=== PATIENT | female | born 1995 | race Caucasian/White ===

== ENCOUNTER 2016-07-11 15:56 | Emergency (ER) | payer BC ==
[2016-07-11 17:38] VITALS: BP 146/91
--- NOTE | 2016-07-11 17:51 | UC ---
Skin Complaint HPI - History of Current Complaint Chief Complaint: UCSkin Time Seen by Provider: 07/11/16 17:41 Stated Complaint: SKIN COMPLAINT Hx Obtained From: Patient Hx Last Menstrual Period: NUVARING ?: No Onset/Duration: Sudden Onset - yesterday, like a bug bite, Worse Since - today with spreading redness. Skin Exposure Onset/Duration: Days Ago - co-worker with MRSA Timing: Constant Onset Severity: Mild Current Severity: Mild Location: Discrete - left forearm. Aggravating: Touch Alleviating: Nothing Associated Signs & Symptoms: Positive: Tenderness - Allergy/Home Medications Allergies/Adverse Reactions: Allergies Allergy/AdvReac Type Severity Reaction Status Date / Time No Known Allergies Allergy Verified 07/11/16 17:38 Review of Systems Skin: Other - red spot. All Other Systems Reviewed And Are Negative: Yes PMH/Surg Hx/FS Hx/Imm Hx Previously Healthy: Yes Endocrine History Of: Denies: Thyroid Disease Respiratory History Of: Comment Only: Asthma - bronchospasm with infections. GI/ History Of: Denies: Gastroesophageal Reflux - Surgical History Surgical History: Yes Surgery Procedure, Year, and Place: wisdom teeth - Family History Known Family History: Positive: Hypertension, Diabetes Negative: Respiratory Disease - neg asthma in family - Social History Occupation: Employed Full-time Lives: With Family Alcohol Use: Occasionally Substance Use Type: None Smoking Status (MU): Never Smoked Tobacco - Immunization History Most Recent Influenza Vaccination: none Physical Exam Triage Information Reviewed: Yes Appearance: Well-Appearing, No Pain Distress, Obese Vital Signs: Initial Vital Signs Temp 98.2 F 07/11/16 17:32 Pulse 90 07/11/16 17:32 Resp 16 07/11/16 17:32 BP 146/91 07/11/16 17:32 Pulse Ox 100 07/11/16 17:32 Vital Signs Reviewed: Yes Eyes: Positive: Conjunctiva Clear Neck exam: Normal Respiratory: Positive: Lungs clear Cardiovascular Exam: Normal Musculoskeletal Exam: Normal Neurological Exam: Normal Psychological Exam: Normal Skin: Positive: Other - 3.0x1.5 cm erythematous plaque, warm and tender. Course/Dx - Differential Diagnoses - Skin Complaint Differential Diagnoses: Cellulitis, Contact Dermatitis, MRSA - Diagnoses Provider Diagnoses: Cellulitis left forearm Discharge - Discharge Plan Condition: Stable Disposition: HOME Prescriptions: Sulfamethox/Trimethoprim DS* [Bactrim DS 800/160 TAB*] 1 tab PO BID #14 tab Patient Education Materials: Cellulitis (ED), Sulfamethoxazole/Trimethoprim ( By mouth) Additional Instructions: Keep the area covered at work
[2016-07-11] MEDS ORDERED: Sulfamethox/Trimethoprim DS 800/160* TAB PO ONE (17:56)
== END 2016-07-11 18:07 | disposition home or self-care (01) ==
LOC: UCCORT 15:56
DX: L03.114 Cellulitis of left upper limb (principal); Z87.09 Personal history of other diseases of the respiratory system
CPT/HCPCS: 87070; 87077; 87205; 99212; A9270-GY; G0463

== ENCOUNTER 2017-05-07 12:27 | Emergency (ER) | payer BC ==
[2017-05-07 14:12] VITALS: BP 139/80
--- NOTE | 2017-05-07 15:01 | UC ---
Throat Pain/Nasal Shayan HPI - HPI Summary HPI Summary: 21 yo F has a sore throat and feels like there is a "film" on the roof of her mouth and the roof of her mouth is itchy. No fever. No cough. 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 Was also exposed to hand foot and mouth disease last week. - History of Current Complaint Chief Complaint: UCGeneralIllness Stated Complaint: SORE THROAT/ORAL COMPLAINT Time Seen by Provider: 05/07/17 15:00 Hx Obtained From: Patient Hx Last Menstrual Period: unknown, has nuvaring ?: No Onset/Duration: Gradual Onset, Lasting Days Severity: Moderate Pain Intensity: 5 Pain Scale Used: 0-10 Numeric Cough: None Associated Signs & Symptoms: Positive: Dysphagia, Other - roof of mouth is sore , feels like there is a film on it, and it is itchy - Allergies/Home Medications Allergies/Adverse Reactions: Allergies Allergy/AdvReac Type Severity Reaction Status Date / Time No Known Allergies Allergy Verified 05/07/17 14:05 Home Medications: Home Medications Ibuprofen [Ibuprofen 200 MG] 600 mg PO Q6H PRN 05/07/17 [History Confirmed 05/07] Nuvaring ONCE 05/07/17 [History] PMH/Surg Hx/FS Hx/Imm Hx Previously Healthy: Yes - Surgical History Surgical History: Yes Surgery Procedure, Year, and Place: wisdom teeth - Family History Known Family History: Positive: Hypertension, Diabetes Negative: Respiratory Disease - neg asthma in family - Social History Occupation: Employed Full-time - pharmacy student Alcohol Use: Occasionally Substance Use Type: None Smoking Status (MU): Never Smoked Tobacco - Immunization History Most Recent Influenza Vaccination: none Review of Systems Constitutional: Negative Skin: Negative ENT: Sore Throat Respiratory: Negative Cardiovascular: Negative Gastrointestinal: Negative Musculoskeletal: Negative Neurological: Negative Psychological: Negative Is Patient Immunocompromised?: No All Other Systems Reviewed And Are Negative: Yes Physical Exam Triage Information Reviewed: Yes Appearance: Ill-Appearing, Pain Distress, Obese Vital Signs: Initial Vital Signs Temp 97.1 F 05/07/17 14:07 Pulse 81 05/07/17 14:07 Resp 16 05/07/17 14:07 BP 139/80 05/07/17 14:07 Pulse Ox 100 05/07/17 14:07 Vital Signs Reviewed: Yes Eyes: Positive: Conjunctiva Clear ENT: Positive: Normal ENT inspection, Pharyngeal erythema, TMs normal, Uvula midline, Other - roof of mouth, mid-hard palate with mucosal disruption, "wrinkled". No petechiae. No sign of Coxsackie virus.. Negative: Tonsillar swelling, Tonsillar exudate Neck: Positive: Supple, Nontender, No Lymphadenopathy Respiratory: Positive: Lungs clear, Normal breath sounds, No respiratory distress Cardiovascular: Positive: RRR, No Murmur, Pulses Normal, Brisk Capillary Refill Musculoskeletal: Positive: Strength Intact, ROM Intact, No Edema Neurological: Positive: Alert, Muscle Tone Normal Psychological Exam: Normal Skin Exam: Normal Skin: Negative: rashes Throat Pain/Nasal Course/Dx - Course Course Of Treatment: rapid A - Differential Dx/Diagnosis Differential Diagnosis/HQI/PQRI: Mononucleosis, Pharyngitis, Tonsillitis, URI Provider Diagnoses: Pharyngitis. stomatitis. Elevated BP without dx of HTN Discharge - Discharge Plan Condition: Stable Disposition: HOME Patient Education Materials: Pharyngitis (ED), Oral Mucositis (ED) Referrals: Thelma Marie MD [Primary Care Provider] - 2 Days Additional Instructions: You may want to try "magic mouthwash", equal parts mixture of liquid antacid, such as Maalox, and liquid benadryl (diphenhydramine). You can ask the pharmacist and they can advise you if you are unsure about this. You can swish this in your mouth and then expectorate (spit it out). This helps with the soreness and itching on the roof of your mouth. You may also try the baking soda or salt water solution that is recommended in these instructions. Your blood pressure is elevated today. This may be due to pain. However you should have this checked again with your doctor within one month. We have drawn your blood to test for mononucleosis today. The results will be available in 1-2 days. We will contact you if the mono test is positive. You may also call here for results if you have not heard from us. If the mono test is positive, you will want to avoid any contact sports or activities where your spleen could rupture. Follow up with your doctor or return to urgent care if you have any new or worsening symptoms.
[2017-05-08 13:57] LABS: EBV Response YES
[2017-05-08 14:11] LABS: Hematocrit 44 % (35-47); Hemoglobin 14.8 g/dl (12.0-16.0); Manual Entry Verification HAN0055; Mean Corpuscular HGB Conc 34 g/dl (31-36); Mean Corpuscular Hemoglobin 31 pg (27-31); Mean Corpuscular Volume 90 fL (80-97); Mean Platelet Volume 9 um3 (7.4-10.4); Red Blood Count 4.85 10^6/ul (4.0-5.4); Red Cell Distribution Width 12 % (10.5-15); White Blood Count 9.4 10^3/ul (3.5-10.8)
[2017-05-08 14:32] LABS: Mono Internal Control QC Line Present
--- NOTE | 2017-05-09 07:35 | ED ---
Progress - Progress Note Progress Note: call patient cbc no acute changes and mono negative. If worse go to er. Course/Dx - Course Course Of Treatment: rapid A - Diagnoses Provider Diagnoses: Fever
[2017-05-10 11:13] LABS: EBV Capsid Ag IgG Ab Positive (Negative); EBV Capsid Ag IgM Ab Negative (Negative)
== END 2017-05-07 16:21 | disposition home or self-care (01) ==
LOC: UCCORT 12:27
DX: J02.9 Acute pharyngitis, unspecified (principal); K12.1 Other forms of stomatitis; R03.0 Elevated blood-pressure reading, without diagnosis of hypertension; E66.9 Obesity, unspecified
CPT/HCPCS: 36415; 85025; 86308; 86664; 86665; 87651; 99211; G0463

== ENCOUNTER 2017-06-08 15:34 | Emergency (ER) | payer BC ==
[2017-06-08 18:11] VITALS: BP 142/89
--- NOTE | 2017-06-08 18:44 | UC ---
Respiratory Complaint HPI - HPI Summary HPI Summary: 21 female presents to with complaints of cough x 3 weeks, runny nose and not improving. Patient states she has tried everything and is still feeling malaise. Has been drinking fluids, honey, tea and taking mucinex. No other complaints. No PMHx. States he has been coughing so hard he vomits phlegm. Denies recent fever/chills. - History of Current Complaint Chief Complaint: UCRespiratory Stated Complaint: COUGH Time Seen by Provider: 06/08/17 18:21 Hx Obtained From: Patient Hx Last Menstrual Period: less than 3 weeks ?: No Onset/Duration: Sudden Onset, Lasting Weeks - 3, Still Present Timing: Constant Severity Initially: Moderate Severity Currently: Moderate Pain Intensity: 0 Pain Scale Used: 0-10 Numeric Character: Cough: Nonproductive Aggravating Factors: Recumbent Position Alleviating Factors: Upright Position, Nothing Associated Signs And Symptoms: Positive: URI - Allergies/Home Medications Allergies/Adverse Reactions: Allergies Allergy/AdvReac Type Severity Reaction Status Date / Time seasonal Allergy Eyes Uncoded 06/08/17 18:11 Itchy/Swollen/Red/Watery PMH/Surg Hx/FS Hx/Imm Hx - Additional Past Medical History Additional PMH: Denied asthma, DM and HTN - Surgical History Surgical History: Yes Surgery Procedure, Year, and Place: wisdom teeth - Family History Known Family History: Positive: Hypertension, Diabetes Negative: Respiratory Disease - neg asthma in family - Social History Alcohol Use: Occasionally Substance Use Type: None Smoking Status (MU): Never Smoked Tobacco - Immunization History Most Recent Influenza Vaccination: none Review of Systems Constitutional: Negative ENT: Negative, Nasal Discharge Respiratory: Cough Cardiovascular: Negative All Other Systems Reviewed And Are Negative: Yes Physical Exam Triage Information Reviewed: Yes Appearance: Well-Appearing, No Pain Distress, Well-Nourished Vital Signs: Initial Vital Signs Temp 97.2 F 06/08/17 18:05 Pulse 100 06/08/17 18:05 Resp 18 06/08/17 18:05 BP 142/89 06/08/17 18:05 Pulse Ox 98 06/08/17 18:05 elevated bp noted and recheck PCP 2 weeks Vital Signs Reviewed: Yes Eyes: Positive: Conjunctiva Clear ENT: Positive: Hearing grossly normal, Pharyngeal erythema, TMs normal, Tonsillar swelling. Negative: Tonsillar exudate Neck: Positive: Supple, Nontender, No Lymphadenopathy Respiratory: Positive: Chest non-tender, Lungs clear, Normal breath sounds, No respiratory distress, No accessory muscle use. Negative: Wheezing Cardiovascular: Positive: RRR, No Murmur, Pulses Normal, Brisk Capillary Refill Musculoskeletal: Positive: Strength Intact, ROM Intact Neurological Exam: Normal Skin Exam: Normal UC Diagnostic Evaluation - Laboratory O2 Sat by Pulse Oximetry: 98 Respiratory Course/Dx - Course Course Of Treatment: due to length of symptoms will attempt to treat with a zpak for bacterial component. Continue symptomatic measures. Given tessalon pearls and inhaler as well. No other concerns. normal vitals. follow up pcp. aware of worsening signs and symptoms to watch out for. - Differential Dx/Diagnosis Differential Diagnosis/HQI/PQRI: Bronchitis, Lower Resp Infection, Other - URI Provider Diagnoses: Bronchitis Discharge - Discharge Plan Condition: Stable Disposition: HOME Prescriptions: Albuterol HFA INHALER* [Ventolin HFA Inhaler*] 1 puff INH Q4H PRN #1 mdi PRN Reason: Sob/Wheezing Azithromycin TAB* [Zithromax TAB (Z-JONATHON) 250 mg #6 tabs] 2 tab PO .TODAY, THEN 1 DAILY #1 jonathon Benzonatate CAP* [Tessalon 100 MG CAP*] 100 mg PO TID #20 cap Patient Education Materials: Acute Bronchitis (ED) Referrals: Thelma Marie MD [Primary Care Provider] - Additional Instructions: Continue symptomatic measures as you have been. Take medications as prescribed. Cough medicine at bedtime especially. Inhaler has needed for SOB/wheezing. Increase fluid intake and get plenty of rest. Follow up with PCP. Any new or worsening signs/symptoms to watch out for.
== END 2017-06-08 18:48 | disposition home or self-care (01) ==
LOC: UCCORT 15:34
DX: J40 Bronchitis, not specified as acute or chronic (principal)
CPT/HCPCS: 99212; G0463

== ENCOUNTER 2018-01-05 15:37 | Emergency (ER) | payer BC ==
--- NOTE | 2018-01-05 16:22 | UC ---
Complaint Female HPI - HPI Summary HPI Summary: 22 yo female presents with burning during urination and urinary frequency that started this morning. She has not taken anything OTC. Has had many UTIs in the past and this feels the same. Denies fever, chills, flank pain, abdominal pain, n/v, vaginal discharge/odor. - History Of Current Complaint Stated Complaint: URINARY Time Seen by Provider: 01/05/18 16:21 Hx Obtained From: Patient Hx Last Menstrual Period: less than 3 weeks Onset/Duration: Sudden Onset Severity Initially: Moderate Severity Currently: Moderate Pain Intensity: 5 Pain Scale Used: 0-10 Numeric - Allergies/Home Medications Allergies/Adverse Reactions: Allergies Allergy/AdvReac Type Severity Reaction Status Date / Time seasonal Allergy Eyes Uncoded 01/05/18 16:25 Itchy/Swollen/Red/Watery PMH/Surg Hx/FS Hx/Imm Hx - Additional Past Medical History Additional PMH: None Previously Healthy: Yes - Surgical History Surgical History: Yes Surgery Procedure, Year, and Place: wisdom teeth - Family History Known Family History: Positive: Hypertension, Diabetes Negative: Respiratory Disease - neg asthma in family - Social History Occupation: Employed Full-time Lives: With Family Alcohol Use: Occasionally Substance Use Type: None Smoking Status (MU): Never Smoked Tobacco - Immunization History Most Recent Influenza Vaccination: none Review of Systems Constitutional: Negative Skin: Negative Respiratory: Negative Cardiovascular: Negative Genitourinary: Dysuria, Frequency Neurological: Negative Psychological: Negative All Other Systems Reviewed And Are Negative: Yes Physical Exam - Summary Physical Exam Summary: GENERAL: NAD. WDWN. No pain distress. SKIN: No rashes, sores, lesions, or open wounds. NECK: Supple. Nontender. No lymphadenopathy. CHEST: CTAB. No r/r/w. No accessory muscle use. Breathing comfortably and in no distress. CV: RRR. Without m/r/g. Pulses intact. Brisk cap refill. ABDOMEN: Soft. NTTP. No distention or guarding. No organomegaly. No CVA tenderness. Bowel sounds present NEURO: Alert. CN II-XII grossly intact. PSYCH: Age appropriate behavior. Triage Information Reviewed: Yes Vital Signs: Vital Signs: Temp Pulse Resp BP Pulse Ox 98.1 F 97 16 122/83 100 01/05/18 16:21 01/05/18 16:21 01/05/18 16:21 01/05/18 16:21 01/05/18 16:21 Laboratory Tests 01/05/18 01/05/18 16:31 16:33 POC Urine Color Dark yellow POC Urine Clarity Slightly cloudy POC Urine pH 5.5 POC Ur Specif [place] 1.020 POC Urine Protein Trace A POC Ur Glucose (UA) Negative POC Urine Ketones 1+ A POC Urine Blood 1+ A POC Urine Nitrite Negative POC Urine Bilirubin Negative POC Urine Urobilinogen 0.2 POC U Leukocyte Esteras 2+ A POC Ur Test Negative Vital Signs Reviewed: Yes Complaint Female Dx - Course Course Of Treatment: UA with signs of infection. Will treat with Macrobid and send for culture - Differential Dx/Diagnosis Provider Diagnoses: UTI Discharge - Sign-Out/Discharge Documenting (check all that apply): Patient Departure - Discharge Plan Condition: Stable Disposition: HOME Prescriptions: Fluconazole [Diflucan 150 MG (NF)] 150 mg PO ONCE #1 tab Nitrofurantoin Monohyd/M-Cryst [Macrobid 100 mg Capsule] 100 mg PO BID #10 cap Patient Education Materials: Urinary Tract Infection in Women (ED) Referrals: Thelma Marie MD [Primary Care Provider] - Additional Instructions: If you develop a fever, shortness of breath, chest pain, new or worsening symptoms - please call your PCP or go to the ED. Per institutional requirements, I have reviewed the chart, however, I was not consulted specifically or made aware of this patient by the above midlevel provider. I did not personally evaluate, interact with , or disposition this patient. - Billing Disposition and Condition Condition: STABLE Disposition: Home
[2018-01-05 16:25] VITALS: BP 122/83
== END 2018-01-05 16:52 | disposition home or self-care (01) ==
LOC: UCCORT 15:37
DX: N39.0 Urinary tract infection, site not specified (principal)
CPT/HCPCS: 81003; 84702; 87086; 99212; G0463

== ENCOUNTER 2018-01-21 14:33 | Emergency (ER) | payer BC ==
[2018-01-21 15:45] VITALS: BP 134/77
--- NOTE | 2018-01-21 16:02 | UC ---
Complaint Female HPI - HPI Summary HPI Summary: urinary pain burning urgency and frequency, also has a sore throat that began today - History Of Current Complaint Chief Complaint: UCGU Stated Complaint: URINARY Time Seen by Provider: 01/21/18 15:49 Hx Obtained From: Patient Hx Last Menstrual Period: 6 WEEKS AGO- NUVARING ?: No Onset/Duration: Sudden Onset Timing: Constant Pain Intensity: 5 Pain Scale Used: 0-10 Numeric Character: Burning Aggravating Factor(s): Coughing, Urination Alleviating Factor(s): Position Associated Signs And Symptoms: Positive: Negative - Allergies/Home Medications Allergies/Adverse Reactions: Allergies Allergy/AdvReac Type Severity Reaction Status Date / Time seasonal Allergy Eyes Uncoded 01/21/18 15:38 Itchy/Swollen/Red/Watery PMH/Surg Hx/FS Hx/Imm Hx Previously Healthy: Yes - Surgical History Surgical History: Yes Surgery Procedure, Year, and Place: wisdom teeth - Family History Known Family History: Positive: Hypertension, Diabetes Negative: Respiratory Disease - neg asthma in family - Social History Occupation: Employed Full-time Lives: With Family Alcohol Use: Occasionally Substance Use Type: None Smoking Status (MU): Never Smoked Tobacco - Immunization History Most Recent Influenza Vaccination: none Most Recent Tetanus Shot: UTD Review of Systems Constitutional: Negative Skin: Negative Eyes: Negative ENT: Sore Throat Respiratory: Negative Cardiovascular: Negative Gastrointestinal: Negative Genitourinary: Dysuria, Frequency, Urgency Motor: Negative Neurovascular: Negative Musculoskeletal: Negative Neurological: Negative Psychological: Negative Is Patient Immunocompromised?: No All Other Systems Reviewed And Are Negative: Yes Physical Exam Triage Information Reviewed: Yes Appearance: Well-Appearing, No Pain Distress, Obese Vital Signs: Initial Vital Signs Temp 98.7 F 01/21/18 15:38 Pulse 90 01/21/18 15:38 Resp 16 01/21/18 15:38 BP 134/77 01/21/18 15:38 Pulse Ox 100 01/21/18 15:38 Vital Signs Reviewed: Yes Eye Exam: Normal Eyes: Positive: Conjunctiva Clear ENT Exam: Normal ENT: Positive: Normal ENT inspection, Hearing grossly normal. Negative: Trismus , Muffled voice, Hoarse voice Dental Exam: Normal Neck exam: Normal Neck: Positive: Supple, Nontender Respiratory Exam: Normal Respiratory: Positive: Chest non-tender, No respiratory distress, No accessory muscle use Cardiovascular Exam: Normal Cardiovascular: Positive: RRR, Pulses Normal, Brisk Capillary Refill Abdominal Exam: Normal Abdomen Description: Positive: Nontender, No Organomegaly, Soft. Negative: CVA Tenderness (R), CVA Tenderness (L) Bowel Sounds: Positive: Present Musculoskeletal Exam: Normal Musculoskeletal: Positive: Strength Intact, ROM Intact Neurological Exam: Normal Neurological: Positive: Alert, Muscle Tone Normal Psychological Exam: Normal Skin Exam: Normal Diagnostics - Laboratory Diagnostic Studies Completed/Ordered: u/a +2 leukoesterase, RST (-) Complaint Female Dx - Course Course Of Treatment: culture urine, macrobid increase fluids follow with pcp 1 week - Differential Dx/Diagnosis Provider Diagnoses: Viral Pharyngitis, UTI Discharge - Sign-Out/Discharge Documenting (check all that apply): Patient Departure - Discharge Plan Condition: Stable Disposition: HOME Prescriptions: Nitrofurantoin Monohyd/M-Cryst [Macrobid 100 mg Capsule] 100 mg PO BID #10 cap Patient Education Materials: Urinary Tract Infection in Women (ED), Pharyngitis (ED), Dysuria (ED) Referrals: Thelma Marie MD [Primary Care Provider] - 1 Week - Billing Disposition and Condition Condition: STABLE Disposition: Home
== END 2018-01-21 16:15 | disposition home or self-care (01) ==
LOC: UCCORT 14:33
DX: N39.0 Urinary tract infection, site not specified (principal); J02.9 Acute pharyngitis, unspecified
CPT/HCPCS: 81003; 84702; 87086; 87651; 99212; G0463

== ENCOUNTER 2018-03-29 15:45 | Emergency (ER) | payer BC ==
[2018-03-29 16:50] VITALS: BP 129/76
--- NOTE | 2018-03-29 16:57 | UC ---
UC General HPI - HPI Summary HPI Summary: Patient is complaining of UTI. She describes it as a combination of frequent, urgent and burning with urination. She denies any associated fever, abdominal pain or flank pain. She has a history of UTIs and this feels the same. She denies risk concern for pelvic infection. onset today. - History of Current Complaint Chief Complaint: UCGU Stated Complaint: URINARY Time Seen by Provider: 03/29/18 16:47 Hx Obtained From: Patient Hx Last Menstrual Period: 6 WEEKS AGO- NUVARING Onset/Duration: Gradual Onset Timing: Constant Pain Intensity: 5 Associated Signs & Symptoms: Positive: Dysuria. Negative: Abdominal Pain, Fever - Allergy/Home Medications Allergies/Adverse Reactions: Allergies Allergy/AdvReac Type Severity Reaction Status Date / Time seasonal Allergy Eyes Uncoded 03/29/18 16:45 Itchy/Swollen/Red/Watery PMH/Surg Hx/FS Hx/Imm Hx Previously Healthy: Yes - Surgical History Surgical History: Yes Surgery Procedure, Year, and Place: wisdom teeth - Family History Known Family History: Positive: Hypertension, Diabetes Negative: Respiratory Disease - neg asthma in family - Social History Occupation: Employed Full-time Alcohol Use: Occasionally Substance Use Type: None Smoking Status (MU): Never Smoked Tobacco - Immunization History Most Recent Influenza Vaccination: none Most Recent Tetanus Shot: UTD Vaccination Up to Date: Yes Review of Systems Constitutional: Negative Skin: Negative Eyes: Negative ENT: Negative Respiratory: Negative Cardiovascular: Negative Gastrointestinal: Negative Genitourinary: Dysuria, Frequency, Urgency Motor: Negative Neurovascular: Negative Musculoskeletal: Negative Neurological: Negative Psychological: Negative Is Patient Immunocompromised?: No All Other Systems Reviewed And Are Negative: Yes Physical Exam Triage Information Reviewed: Yes Appearance: Well-Appearing Vital Signs: Initial Vital Signs Temp 97.2 F 03/29/18 16:46 Pulse 87 03/29/18 16:46 Resp 20 03/29/18 16:46 BP 129/76 03/29/18 16:46 Pulse Ox 100 03/29/18 16:46 Vital Signs Reviewed: Yes Eyes: Positive: Conjunctiva Clear ENT: Positive: Normal ENT inspection Neck: Positive: Supple, Nontender, No Lymphadenopathy Respiratory: Positive: Lungs clear, Normal breath sounds Cardiovascular: Positive: RRR, No Murmur Abdomen Description: Positive: Nontender, No Organomegaly, Soft. Negative: CVA Tenderness (R), CVA Tenderness (L), Distended, Guarding Bowel Sounds: Positive: Present Musculoskeletal: Positive: ROM Intact Neurological: Positive: Alert Psychological: Positive: Normal Response To Family, Age Appropriate Behavior Skin Exam: Normal Diagnostics - Laboratory Diagnostic Studies Completed/Ordered: u/a= positive for blood and leukocytes, culture pending. Course/Dx - Course Course Of Treatment: Nontoxic. No acute abdomen. No concern for pyelonephritis. Patient denies risk, concern as well as signs and symptoms for pelvic infection. UA is positive for leukocytes and blood thus we'll treat for presumptive UTI with a culture pending. - Differential Dx - Multi-Symptom Provider Diagnoses: dysuria Discharge - Sign-Out/Discharge Documenting (check all that apply): Patient Departure All imaging exams completed and their final reports reviewed: No Studies - Discharge Plan Condition: Stable Disposition: HOME Prescriptions: Nitrofurantoin Monohyd/M-Cryst [Macrobid 100 mg Capsule] 100 mg PO BID 5 Days # 10 cap Patient Education Materials: Dysuria (ED) Referrals: Thelma Marie MD [Primary Care Provider] - 7 Days - Billing Disposition and Condition Condition: STABLE Disposition: Home
== END 2018-03-29 17:02 | disposition home or self-care (01) ==
LOC: UCCORT 15:45
DX: R30.0 Dysuria (principal)
CPT/HCPCS: 81003; 87077; 87086; 87186; 99212; G0463

== ENCOUNTER 2018-05-10 07:39 | Emergency (ER) | payer BC ==
[2018-05-10 07:52] VITALS: BP 133/76
--- NOTE | 2018-05-10 08:28 | UC ---
Complaint Female HPI - HPI Summary HPI Summary: 22-year-old woman comes in today with a chief complaint of burning with urination which started yesterday. No flank pain no abdominal pain no fevers no chills. Denies any abnormal vaginal discharge or any concern of STI. She's had urinary tract infection a past that's what this feels like. - History Of Current Complaint Chief Complaint: UCGU Stated Complaint: URINARY Time Seen by Provider: 05/10/18 07:48 Hx Last Menstrual Period: 6 WEEKS AGO. PT HAS THE NUVARING, HAS A PERIOD EVERY THREE MONTHS Pain Intensity: 4 - Allergies/Home Medications Allergies/Adverse Reactions: Allergies Allergy/AdvReac Type Severity Reaction Status Date / Time seasonal Allergy Eyes Uncoded 05/10/18 07:45 Itchy/Swollen/Red/Watery Home Medications: Home Medications Ibuprofen TAB* [Advil TAB*] 600 mg PO Q6H PRN 05/10/18 [History Confirmed ] PMH/Surg Hx/FS Hx/Imm Hx Previously Healthy: Yes - utis - Surgical History Surgical History: Yes Surgery Procedure, Year, and Place: wisdom teeth - Family History Known Family History: Positive: Hypertension, Diabetes Negative: Respiratory Disease - neg asthma in family - Social History Alcohol Use: Occasionally Substance Use Type: None Smoking Status (MU): Never Smoked Tobacco - Immunization History Most Recent Influenza Vaccination: none Most Recent Tetanus Shot: UTD Vaccination Up to Date: Yes Review of Systems All Other Systems Reviewed And Are Negative: Yes Constitutional: Positive: Negative Skin: Positive: Negative Eyes: Positive: Negative ENT: Positive: Negative Respiratory: Positive: Negative Cardiovascular: Positive: Negative Gastrointestinal: Positive: Negative Genitourinary: Positive: Dysuria, Frequency, Urgency. Negative: Vaginal/Penile Discharge Motor: Positive: Negative Neurovascular: Positive: Negative Musculoskeletal: Positive: Negative Neurological: Positive: Negative Psychological: Positive: Negative Is Patient Immunocompromised?: No Physical Exam Triage Information Reviewed: Yes Appearance: Well-Appearing, No Pain Distress, Well-Nourished Vital Signs: Initial Vital Signs Temp 96.5 F 05/10/18 07:46 Pulse 80 05/10/18 07:46 Resp 18 05/10/18 07:46 BP 133/76 05/10/18 07:46 Pulse Ox 99 05/10/18 07:46 Vital Signs Reviewed: Yes Eyes: Positive: Conjunctiva Clear Neck exam: Normal Neck: Positive: Supple Respiratory: Positive: Lungs clear, Normal breath sounds, No respiratory distress Cardiovascular Exam: Normal Cardiovascular: Positive: RRR Abdominal Exam: Normal Abdomen Description: Positive: Nontender, Soft. Negative: CVA Tenderness (R), CVA Tenderness (L) Musculoskeletal Exam: Normal Musculoskeletal: Positive: Strength Intact, ROM Intact Neurological Exam: Normal Neurological: Positive: Alert, Muscle Tone Normal Psychological Exam: Normal Psychological: Positive: Normal Response To Family, Age Appropriate Behavior Skin Exam: Normal Complaint Female Dx - Differential Dx/Diagnosis Provider Diagnoses: UTI Discharge - Sign-Out/Discharge Documenting (check all that apply): Patient Departure All imaging exams completed and their final reports reviewed: No Studies - Discharge Plan Condition: Stable Disposition: HOME Prescriptions: Cephalexin CAP* [Keflex CAP*] 500 mg PO TID #21 cap Phenazopyridine 200 mg (NF) [Pyridium 200 MG tab *] 200 mg PO TID PRN #10 tab PRN Reason: Pain Patient Education Materials: Urinary Tract Infection in Women (ED) Referrals: Thelma Marie MD [Primary Care Provider] - Additional Instructions: FOLLOW UP WITH YOUR DOCTOR IF NOT COMPLETELY IMPROVED. GET RECHECKED FOR ANY WORSENING OF YOUR CONDITION OR QUESTIONS OR CONCERNS. - Billing Disposition and Condition Condition: STABLE Disposition: Home
--- NOTE | 2018-05-11 12:47 | UC ---
- Progress Note Progress Note: urine culture - no growth no change iggyj 05/11/2018 Discharge - Sign-Out/Discharge Documenting (check all that apply): Patient Departure All imaging exams completed and their final reports reviewed: No Studies - Discharge Plan Condition: Stable Disposition: HOME Prescriptions: Cephalexin CAP* [Keflex CAP*] 500 mg PO TID #21 cap Phenazopyridine 200 mg (NF) [Pyridium 200 MG tab *] 200 mg PO TID PRN #10 tab PRN Reason: Pain Patient Education Materials: Urinary Tract Infection in Women (ED) Referrals: Thelma Marie MD [Primary Care Provider] - Additional Instructions: FOLLOW UP WITH YOUR DOCTOR IF NOT COMPLETELY IMPROVED. GET RECHECKED FOR ANY WORSENING OF YOUR CONDITION OR QUESTIONS OR CONCERNS. - Billing Disposition and Condition Condition: STABLE Disposition: Home
== END 2018-05-10 08:39 | disposition home or self-care (01) ==
LOC: UCCORT 07:39
DX: N39.0 Urinary tract infection, site not specified (principal); Z91.09 Other allergy status, other than to drugs and biological substances
CPT/HCPCS: 81003; 84702; 87086; 99212; G0463